=== PATIENT | female | born 1955 | race Caucasian/White ===

== ENCOUNTER 2019-04-21 23:25 | Emergency (ER) | payer OTHER ==
[~2019-04-21] VITALS: Ht 157.5 cm; Wt 72.6 kg
[2019-04-21 23:30] VITALS: BP_SYST 148
--- NOTE | 2019-04-22 00:08 | NUR ---
Patient to ER bed 5 to gown for evaluation. Side rails up. Report given to THOMAS MALONEY.
--- NOTE | 2019-04-22 00:38 | NUR ---
Pt brought into ER by daughter. Pt awake, alert, oriented x4. Pt ambulatory w steady gait. Pt states chief complaint of sore throat, productive cough, chest congestion x2 weeks. Pt states that she finish rx of Z-pack approx 5 days ago for bronchitis, and recieved antibiotic injection on 04/18 with some relief. Pt states that she has returned to feeling chest congestion and cough today. Pt states she had 1 episode of diarrhea today. Pt denies chest pain, nausea, vomting, diarrhea outside of isolated event today. pt denies any other medical complaint at this time. Pt resting in ED bed. No acute distress noted. No tripoding, no retractions. VSS
--- NOTE | 2019-04-22 01:00 | NUR ---
ER at bedside examining patient.
[2019-04-22 01:35] VITALS: BP_SYST 144
--- NOTE | 2019-04-22 01:35 | NUR ---
Patient given written and verbal discharge instructions and verbalizes understanding. ER MD discussed with patient the results and treatment provided. Patient in stable condition. ID arm band removed. Rx of Levaqcarlyle and mark anthony Cisneros given. Patient educated on pain management and to follow up with PMD. Pain Scale 0/10. Opportunity for questions provided and answered. Medication side effect fact sheet provided.
== END 2019-04-22 01:35 | disposition home or self-care (01) ==
LOC: SED 23:25
DX: J40 Bronchitis, not specified as acute or chronic (principal); E11.9 Type 2 diabetes mellitus without complications; I10 Essential (primary) hypertension; E03.9 Hypothyroidism, unspecified
CPT/HCPCS: 99283